=== PATIENT | male | born 1940 | race Caucasian/White ===

== ENCOUNTER → 2017-06-15 08:59 | Outpatient (CLI) | payer MEDICARE, OTHER, SELFPAY ==
--- NOTE | 2017-06-15 09:02 | RAD_ITS ---
STUDY: X-RAY - LEFT SHOULDER REASON FOR EXAM: Male, 76 years old. Shoulder pain TECHNIQUE: 4 view(s) of the shoulder. COMPARISON: None. FINDINGS: Narrowed glenohumeral articulation with medial spurring of the humeral head. Normal acromioclavicular joint. Normal acromion. Normal humeral head and visualized proximal humerus. The soft tissue structures are unremarkable. Normal visualized pulmonary apex. RAD/Shoulder min 2 Views IMPRESSION: Degenerative changes. No evidence for acute fracture or dislocation Electronically Signed: Bruno Damon MD at 23:58 EST , Service support ,
== END ==
PROVIDERS: Family Provider Internal Medicine; PCP Internal Medicine; Visit Provider Internal Medicine
DX: M25.512 Pain in left shoulder (principal)
CPT/HCPCS: 73030

== ENCOUNTER → 2017-07-07 11:59 | Outpatient (CLI) | payer MEDICARE, OTHER, SELFPAY ==
--- NOTE | 2017-07-07 12:30 | CT_ITS ---
STUDY: CT CHEST WITHOUT CONTRAST REASON FOR EXAM: Male, 76 years old. Calcium scoring examination. RADIATION DOSAGE (If Supplied By Facility): CTDIvol = ( 12.19 ) mGy, DLP = ( 438.83 ) mGycm TECHNIQUE: Transaxial imaging was performed without the administration of intravenous contrast material. Individualized dose optimization techniques were used for this CT. COMPARISON: None. FINDINGS: Mild degree of increased linear markings at the lung bases suggestive of linear scarring and/or dependent atelectasis. Calcified granuloma in the right middle lobe. There is no demonstrated pleural abnormality. There are calcifications of the coronary arteries. There are multiple small lymph nodes within the mediastinum, which are normal in size and morphology most compatible with reactive lymph hyperplasia. Normal hilar regions. Normal unenhanced pulmonary arteries. Normal aorta arch and descending thoracic aorta. There are mild degenerative changes of the thoracic spine. There is no demonstrated abnormality of the visualized upper abdomen. CT/Limited Chest CT w/CCTA IMPRESSION: Findings suggest a mild bibasilar scarring and/or atelectasis. Electronically Signed: Fan Blancas MD at 12:20 EDT Tel [phone], Service support ,
[2017-07-07 12:49] VITALS: BP 129/52; PULSE 57; RESP 14; TEMP 36.5; O2SAT 97; BMI 32.1
--- NOTE | 2017-07-07 13:19 | NURSING ---
1245 PT ASSESSMENT COMPLETE. LAST INTAKE AT 0830. LAST CAFFEINE 3 DAYS AGO. [address] FOR SCAN. 1300 PT ON MONITOR. HR 57, RHYTHM REGULAR. 1309 PT FINISHED WITH SCAN. 1330 RHYTHM STRIP PRINTED AND FAXED TO DR SHAH'S OFFICE.
--- NOTE | 2017-07-07 15:50 | CA.SCORE ---
Calcium Scoring Date of Study:: 07/07/17 Coronary Calcium Scoring: High-resolution CT imaging of the chest was performed on 07/07/2017 with particular attention paid to the coronary arteries. Images from the examination were analyzed for the presence and extent of coronary calcium. The coronary calcium quantification software was used. The patient tolerated the procedure well there were no complications. The results of the coronary calcification analysis demonstrated that the coronary calcium score was 0. Impression: Coronary calcium score of 0.
== END ==
PROVIDERS: Family Provider Internal Medicine; PCP Internal Medicine; Visit Provider Internal Medicine
DX: Z13.9 Encounter for screening, unspecified (principal)
CPT/HCPCS: 75571; 76380

== ENCOUNTER → 2017-09-23 13:53 | Outpatient (CLI) | payer MEDICARE, OTHER, SELFPAY ==
[2017-09-23 15:29] LABS: Color, Urine Yellow (Yellow); Glucose, Dipstick Normal (Normal); Ketone-Dipstick 5 mg/dl (Negative); Leukocyte Esterase-Dipstick 100 /ul (Negative); Nitrite-Dipstick Negative (Negative); Occult Blood-Urine 250 /ul (Negative); Protein-Dipstick 15 mg/dl (Negative); Specific Gravity, Urine 1.025 (1.002-1.030); Urine Bilirubin Dipstick Negative (Negative); Urine Clarity Sl. Cloudy (Clear); Urine Urobilinogen Normal (Normal)
== END ==
PROVIDERS: Family Provider Internal Medicine; PCP Internal Medicine; Visit Provider Internal Medicine
DX: R30.0 Dysuria (principal)
CPT/HCPCS: 81002; 87077; 87086; 87088; 87186

== ENCOUNTER → 2017-11-08 10:29 | Outpatient (CLI) | payer MEDICARE, OTHER, SELFPAY ==
[2017-11-08 11:01] LABS: Color, Urine Yellow (Yellow); Glucose, Dipstick Normal (Normal); Ketone-Dipstick 5 mg/dl (Negative); Leukocyte Esterase-Dipstick 25 /ul (Negative); Nitrite-Dipstick Negative (Negative); Occult Blood-Urine 150 /ul (Negative); Protein-Dipstick Negative (Negative); Specific Gravity, Urine 1.025 (1.002-1.030); Urine Bilirubin Dipstick Negative (Negative); Urine Clarity Sl. Cloudy (Clear); Urine Urobilinogen 1 mg/dl (Normal)
== END ==
PROVIDERS: Family Provider Internal Medicine; PCP Internal Medicine; Visit Provider Internal Medicine
DX: R31.9 Hematuria, unspecified (principal)
CPT/HCPCS: 81002; 87086

== ENCOUNTER → 2018-07-10 10:51 | Outpatient (CLI) | payer MEDICARE, OTHER, SELFPAY ==
--- NOTE | 2018-07-10 10:56 | US_ITS ---
STUDY: ULTRASOUND - URINARY BLADDER REASON FOR EXAM: Male, 77 years old. Renal insufficiency. Evaluate postvoid bladder residual. TECHNIQUE: Ultrasound evaluation of the urinary bladder was performed with real-time and static venegas-scale imaging. COMPARISON: None. FINDINGS: There is no right UVJ calculus. There is a visualized right ureteral jet. There is no left UVJ calculus. There is a visualized left ureteral jet. The distended volume of the urinary bladder is 102.7 ml. The empty volume of the urinary bladder is 40.2 ml. The bladder wall is within normal limits. The bladder wall measures 3 mm. The prostate gland is enlarged, measuring 6.1 x 5.8 x 6.2 cm (R114 cc). Lobulated 2.9 x 3.3 bone 0.4 cm soft tissue echogenicity along the left posterior margin of the bladder may be a component of the prostate gland indenting or invading the bladder wall versus a primary polypoid mass of the bladder wall itself. There are no demonstrated bladder calculi. US/Post Void Residual Bladder IMPRESSION: 1. Enlarged prostate gland. 2. Lobulated soft tissue density along the left posterior bladder wall related to the prostate gland or primary mural lesion of the urinary bladder itself. Recommend visualization with cystoscopy may be useful. 3. Mild to moderate postvoid bladder residual. Electronically Signed: Carl Tapia MD at 16:27 EDT , Service support ,
== END ==
PROVIDERS: Family Provider Internal Medicine; PCP Internal Medicine; Referring Provider Internal Medicine; Visit Provider Internal Medicine
DX: N28.9 Disorder of kidney and ureter, unspecified (principal); R33.9 Retention of urine, unspecified
CPT/HCPCS: 51798

== ENCOUNTER → 2018-07-19 10:54 | Outpatient (CLI) | payer MEDICARE, OTHER, SELFPAY ==
[2017-07-07 12:49] VITALS: BMI 32.1
[2018-07-19 12:41] LABS: Absolute Neutrophil Count 4.5 X10^3/uL (2.0-7.7); Basophil# 0.02 X10^3/uL; Basophil% 0.2 % (0-1); Eosinophil# 0.23 X10^3/uL; Eosinophils% 2.9 % (0-5); Hematocrit 42.3 % (40-54); Hemoglobin 13.7 g/dl (13.0-16.5); Mean Corp Hgb Conc 32.4 g/gl (32-36); Mean Corpuscular Hgb 29.5 pg (27.0-32.0); Mean Platelet Vol. 9.3 fl (6.2-12.0); Monocyte# 0.79 X10^3/uL; Monocyte% 9.8 % (0-10); Neutrophil % 55.9 % (47-70); Platelet Count 276 K/mm3 (150-450); RBC Distribution Width CV 13.3 % (11.6-14.6); Red Blood Count 4.65 M/mm3 (4.6-6.2); White Blood Count 8.1 K/mm3 (4.4-11.0)
[2018-07-19 12:43] LABS: POSITIVE COUNT NO; POSITIVE DIFFERENTIAL NO; POSITIVE MORPHOLOGY NO
[2018-07-19 13:23] LABS: Albumin, Serum 3.4 g/dL (3.2-5.0); BUN 20 mg/dL (7-18); BUN/Creat Ratio 15.2 RATIO (10-20); Calcium,Total 8.7 mg/dL (8.5-10.1); Chloride 108 mmol/L (98-107); Creatinine, Serum 1.32 mg/dL (0.70-1.30); EST Glomerular Filtration Rate 56 mL/min (>60); Est Glom Filt Rate - Afr Amer 68 mL/min (>60); Free T3 2.5 pg/mL (2.18-3.98); Glucose 87 mg/dL (74-106); Phosphorus 2.8 mg/dL (2.5-4.9); Potassium 3.9 mmol/L (3.5-5.1); Sodium Level 141 mmol/L (136-145); T4 Free Direct 0.86 ng/dL (0.76-1.46); Thyroid Stim Hormone (TSH) 2.46 uIU/mL (0.358-3.74)
[2018-07-20 15:03] LABS: Thyroid Peroxidase AB 20 IU/mL (0-34)
== END ==
PROVIDERS: Family Provider Internal Medicine; PCP Internal Medicine; Referring Provider Internal Medicine; Visit Provider Internal Medicine
DX: N28.9 Disorder of kidney and ureter, unspecified (principal); R94.6 Abnormal results of thyroid function studies
CPT/HCPCS: 36415; 80069; 84439; 84443; 84481; 85025; 86376

== ENCOUNTER → 2018-07-20 16:48 | Outpatient (CLI) | payer MEDICARE, OTHER, SELFPAY ==
[2017-07-07 12:49] VITALS: BMI 32.1
--- NOTE | 2018-07-20 | CYSPIN_PTH ---
PATIENT: SHARRI LAMB LOC: [facility] U#:[id number] AGE/SX: 84/M ROOM: RE07/20/[address]: Dr. Eriberto Tanner MD : 1940 BED: DIS: SPEC #: [id number] RECD: 07/20/18 09:03 STATUS: JUAN PABLO MOISÉS #: [id number] ZORA: 07/20/18 00:[address]: Eriberto Tanner DEPT: CYTOLOGY RECD BY: Bernard Ortez ENTERED: 07/21/18 09:04 SP TYPE: CYSPIN FL OTHR DR: Dr. Farida Ellis MD Tissues: Urine Procedures: Pap Stain (control) Special Stain Group II Cytospin Fluid HEADER OPERATION: Not noted PRE-OP DIAGNOSIS: Hematuria TISSUE SUBMITTED: Urine for cytology DIAGNOSIS CYTOLOGY Urine for cytology (cytospin): Negative for malignant cells. Crystalline debris present. AM:debbie 4/1/19 CYTOLOGY STUDY Slides are reviewed. CYTOLOGY GROSS Received is 40 ml of yellow cloudy fluid labeled with the patient's name and and designated per the requisition as urine. Submitted for cytology preparation. 07/21/18 TC:5 CPT: 53211
[2018-07-20 17:08] LABS: Cytology, Body Fluid / CSF SEE PATHOLOGY REPORT
== END ==
PROVIDERS: Family Provider Internal Medicine; PCP Internal Medicine; Referring Provider Urology; Visit Provider Urology
DX: R31.9 Hematuria, unspecified (principal)
CPT/HCPCS: 88108; 88313

== ENCOUNTER 2019-12-07 07:14 | Day surgery (SDC) | payer MEDICARE, OTHER, SELFPAY ==
[2019-11-27 14:18] VITALS: BMI 32.1
[2019-12-07 07:28] VITALS: BP 146/66; PULSE 51; RESP 16; TEMP 36; O2SAT 98; BMI 29.9
--- NOTE | 2019-12-07 07:41 | HP.PCM_ITS ---
Problem List (1) Fecal incontinence Status: Acute Qualifiers: History and Physical Date of Admission: 12/07/19 Intake Visit Reasons: Hemorrhoids Chief Complaint: hemorrhoids Formwork Carpenter Required: No Is patient in pain?: Yes (hemorrhoids) Allergies Sulfa (Sulfonamide Antibiotics) Allergy (Verified 11/27/19 14:18) Hives Medications NK 07/07/17 [History Confirmed 11/27/19] FOR[facility] Medical History Hemorrhoids (Acute) Kidney stones (Acute) Surgical History S/P appendectomy (Acute) Status post laparoscopic cholecystectomy (Acute) Social History (Updated 11/27/19 @ 17:[address] Joe Garcia MD) Smoking Status: Never smoker alcohol intake: never HPI HPI HPI: SHARRI LAMB, is a 79 M who presents to the office today for surgical consultation regarding suspected symptomatic hemorrhoids. The patient was referred by his primary care physician Dr. Lazaro Covarrubias and a written copy my surgical consult recommendations will be returned to him The patient states that over the past month he has had significant pruritus and discomfort from his hemorrhoids. He also states that the stools become more pellet ties and smaller in diameter. He claims that occasionally he will notice some blood. Claims that it is uncomfortable all of the time. His most recent colonoscopy is quite remote dated September 03, 2002. Scattered diverticulosis was identified at that time. The patient denies any acute chest problems. No shortness of breath no cough. He denies any weight loss. He denies any abdominal pain. There is been no nausea or vomiting. He has tried Preparation H suppositories and Tucks pads without relief. HPI HPI HPI: SHARRI LAMB, is a 79 M who presents to the office today for ROS General General: No weight change, appetite, fatigue, colon cancer, breast cancer or weakness HEENT HEENT: No difficulty swallowing, eye injury, eye surgery, swollen glands or hoarseness Endo Endocrine: No thyroid disease, diabetes mellitus, thyroid cancer, Hair loss, heat intolerance or cold intolerance Skin Skin: No rash or changing moles Breast Breast: No left breast lump, right breast lump, nipple discharge, breast pain, abnormal mammogram, abnormal US or breast enlargement Musc Musculoskeletal: Yes arthritis; no back problems, rheumatoid arthritis, gout or joint pain Cardio Cardiovascular: No murmur, pacemaker, heart disease, atrial fibrillation, high blood pressure, heart attack, heart stent, palpitations, shortness of breat with exertion or chest pain Psych Psychiatric: No depression, anxiety or hearing voices Resp Respiratory: No shortness of breath, No sleep apnea, No cough, No COPD, No asthm a, No emphysema, No wheezing Gastro Gastrointestinal: No abdominal pain, No nausea or vomiting, Yes diarrhea, No constipation, Yes blood in stool, No acid reflux, No hemorrhoids, No ulcers, No gallbladder problem, No black,tarry stools Jamil Hematologic: No blood thinners, No blood disorders, No bleeding, No anemia, No blood clots Neuro Neurologic: No system reviewed and no additional complaints, except as docu, No as per HPI, No abnormal walking, No abnormal hearing, No abnormal movements, No abnormal speech, No behavioral changes, No burning sensations, No confusion, No seizure-like activity, No unsteadiness, No dizziness, No localized weakness, No frequent falls, No headache(s), No lack of coordination, No loss of vision, No memory loss, No numbness, No other visual disturbances, No radiating pain, No restless legs, No sensory deficit, No fainting, No tingling, No tremor(s), No weakness, No other Exam Const General: cooperative Nutritional Appearance: average body habitus Orientation: alert, awake Other: Patient is notably hard of hearing HENCT Head: normal to inspection Eyes General: appearance normal, both eyes and all related structures Chest Breast Palpation: No nipple discharge Resp Effort & Inspection: normal respiratory effort Auscultation: clear to auscultation bilaterally Cardio Rate: regular rate Rhythm: regular rhythm Heart Sounds: no murmurs GI Palpation: soft, no hepatosplenomegaly Auscultation: normal bowel sounds Other: Rectal exam demonstrates that he has liquidy stool staining the perianal area for several centimeters. There is superficial excoriation of the skin around the anus. I do not demonstrate any protruding external hemorrhoids. On digital examination he has some very mild internal hemorrhoids. The prostate is 2+ and smooth. I do not detect any mass lesions. Anal tone seems diminished. [facility] Cervical Spine: normal cervical lordosis Neuro Cognition: normal cognition Extrem General: no calf tenderness Psych Affect: normal affect Assessment & Plan Problems 1. Hemorrhoids, unspecified hemorrhoid type K64.9 2. Fecal smearing R15.1 3. Change in bowel habit R19.4 Plan Change of bowel habit with decreased caliber stool. Fecal incontinence which I believe the patient is mistaken for hemorrhoid disease. At least externally there are no gross hemorrhoids and on digital exam the degree of internal hemor rhoidal disease seems less remarkable. We have prescribed for him calmoseptine ointment and Desitin ointment to assist with the fecal incontinence. I am recommending to him a colonoscopy with a very careful inspection of the rectosigmoid area for potential source of stool caliber change. I have discussed with him the technique, benefit, risk and alternatives. He is aware of the Covid-19 pandemic. He is aware that the [facility] currently is reporting a low local incidence. We will schedule and proceed at his discretion. I very much appreciate the kind opportunity of assisting with his surgical care. Unfortunately he is additionally aware that I will not have a surgical resolution if the only diagnosis remains fecal incontinence. Cc: Dr. Lazaro Garcia M.D., F.A.C.S. Orders Orders: Colonoscopy Today Coding Level of Care Code 46379 Diagnoses Hemorrhoids, unspecified hemorrhoid type K64.9 ??Hemorrhoid type: unspecified Fecal smearing R15.1 ??Fecal incontinence type: fecal smearing Change in bowel habit R19.4 I have re-examined the patient. There are no clinical changes since date of exam. Procedure Criteria Procedure Type: Elective COVID Risk Discussion: The surgeon/proceduralist and patient have discussed in detail the risk of exposure to and/or potential harm posed by the COVID-19 virus with having a surgery/procedure at this time versus the risk of delaying the surgery/procedure. It is not possible to know either the risk of delaying the surgery or procedure or chance of getting an infection with perfect accuracy, but a joint decision was made between the patient and the surgeon/proceduralist to proceed at this time with the scheduled surgery/procedure as indicated on the consent form.
[2019-12-07] MEDS: Lactated Ringers 1,000 ML 100 ML IV (07:44)
--- NOTE | 2019-12-07 08:15 | COLBX_PTH ---
PATIENT: SHARRI LAMB LOC: EN U#:[id number] AGE/SX: 79/M ROOM: RE12/07/[address]: Dr. Joe Garcia MD : 1940 BED: DIS: 12/07/2019 SPEC #: [id number] RECD: 12/07/19 09:36 STATUS: JUAN PABLO MOISÉS #: [id number] ZORA: 12/07/19 08:[address]: Joe Garcia DEPT: SURGICAL PATHOLOGY RECD BY: Prasanth Gross ENTERED: 12/07/19 10:09 SP TYPE: COLON BX OTHR DR: MD Lazaro Kumar Tissues: Transverse colon Procedures: Surgery Specimen Level IV HEADER OPERATION: Colonoscopy (MAC) PRE-OP DIAGNOSIS: Fecal smearing, change in bowel habits, hemorrhoids TISSUE SUBMITTED: Biopsy of proximal transverse polyp MICROSCOPIC DIAGNOSIS Proximal transverse colon polyp, biopsy: Fragments of tubular adenoma. SJ:debbie 12/10/19 MICROSCOPIC DESCRIPTION Slides are reviewed. GROSS DESCRIPTION Received in fixative is one container labeled with the patient's name and designated biopsy of proximal transverse polyp. The specimen consists of multiple irregular fragments of light hameed soft tissue that in aggregate measure 0.6 x 0.3 x 0.1 cm. The specimen is totally submitted in one cassette. / KATHERINE:debbie 12/07/19 TC:1 CPT: 82106
[2019-12-07 08:45] VITALS: BP 146/66; PULSE 72; RESP 16; TEMP 36.7; O2SAT 98
--- NOTE | 2019-12-07 08:46 | OP.CCLET_ITS ---
12/07/2019 Lazaro Covarrubias Re : Colonoscopy procedure for Abraham Sunshine Dear Satish This procedure was performed on Saturday, December 07, 2019. My impressions and recommendations are as follows: Impressions : - Preparation of the colon was fair. - Lax anal tone found on digital rectal exam. Internal and external hemorrhoids - Diverticulosis in the sigmoid colon and in the descending colon. - One 5 mm polyp in the proximal transverse colon, removed with a cold biopsy forceps. Resected and retrieved. Recommendations : - Await pathology results. - Repeat colonoscopy in 5 years for surveillance based on pathology results. - Telephone my office for pathology results in 1 week. - Continue present medications. My findings are described in the full procedure note, which is enclosed. If I can be of further assistance, please feel free to contact me at Doctor phone number(s): Work: . Sincerely, Joe Garcia MD 12/07/2019 8:45:59 AM This report has been signed electronically.
--- NOTE | 2019-12-07 08:46 | OP.COLON_ITS ---
Patient Name: Abraham Sunshine Procedure Date: 12/07/2019 8:12 AM Date of : 1940 Age: 79 Procedure: Colonoscopy Indications: Change in bowel habits Providers: Joe Garcia MD Referring MD: Lazaro Covarrubias Medicines: See the Anesthesia note for documentation of the administered medications Patient Profile: Last Colonoscopy: date unknown. Complications: No immediate complications. Procedure: Pre-Anesthesia Assessment: - Prior to the procedure, a History and Physical was performed, and patient medications and allergies were reviewed. The patient's tolerance of previous anesthesia was also reviewed. The risks and benefits of the procedure and the sedation options and risks were discussed with the patient. All questions were answered, and informed consent was obtained. Prior Anticoagulants: The patient has taken no previous anticoagulant or antiplatelet agents. ASA Grade Assessment: II - A patient with mild systemic disease. After reviewing the risks and benefits, the patient was deemed in satisfactory condition to undergo the procedure. After I obtained informed consent, the scope was passed under direct vision. Throughout the procedure, the patient's blood pressure, pulse, and oxygen saturations were monitored continuously. The colonoscope was introduced through the anus and advanced to the cecum, identified by appendiceal orifice and ileocecal valve. The colonoscopy was performed without difficulty. The patient tolerated the procedure well. The quality of the bowel preparation was fair. The ileocecal valve and the appendiceal orifice were photographed. Scope In: 8:22:20 AM Scope Withdrawal Time 0 hours 8 minutes 43 seconds Scope Out: 8:39:06 AM Total Procedure Duration Time 0 hours 16 minutes 46 seconds Findings: The digital rectal exam findings include lax anal tone. Pertinent negatives include normal prostate (size, shape, and consistency). Multiple diverticula were found in the sigmoid colon and descending colon. A 5 mm polyp was found in the proximal transverse colon. The polyp was sessile. The polyp was removed with a cold biopsy forceps. Resection and retrieval were complete. Impression: - Preparation of the colon was fair. - Lax anal tone found on digital rectal exam. Internal and external hemorrhoids - Diverticulosis in the sigmoid colon and in the descending colon. - One 5 mm polyp in the proximal transverse colon, removed with a cold biopsy forceps. Resected and retrieved. Recommendation: - Await pathology results. - Repeat colonoscopy in 5 years for surveillance based on pathology results. - Telephone my office for pathology results in 1 week. - Continue present medications. Procedure Code(s): --- Professional --- 95572, Colonoscopy, flexible; with biopsy, single or multiple Diagnosis Code(s): --- Professional --- D12.3, Benign neoplasm of transverse colon (hepatic flexure or splenic flexure) R19.4, Change in bowel habit K57.30, Diverticulosis of large intestine without perforation or abscess without bleeding CPT copyright 2017 [employer]. All rights reserved. The codes documented in this report are preliminary and upon severity of illness coordinator review may be revised to meet current compliance requirements. Joe Garcia MD 12/07/2019 8:45:59 AM This report has been signed electronically. Number of Addenda: 0 Note Initiated On: 12/07/2019 8:12 AM
[2019-12-07 08:50] VITALS: BP 137/95; BP 146/66; PULSE 71; RESP 16; O2SAT 99
[2019-12-07 08:55] VITALS: BP 146/66; BP 149/83; PULSE 64; RESP 16; O2SAT 97
[2019-12-07 09:00] VITALS: BP 146/66; BP 151/85; PULSE 66; RESP 16; TEMP 36.7; O2SAT 97
[2019-12-07 09:45] VITALS: BP 146/66
== END 2019-12-07 09:30 | disposition home or self-care (01) ==
LOC: EN 07:15 → AC 07:16
PROVIDERS: Anesthesiology; Referring Provider Family Medicine; Visit Provider Surgery
PROC: 0DJD8ZZ Inspection of Lower Intestinal Tract, Via Natural or Artificial Opening Endoscopic (ICD-10-PCS; CPT 45378; principal; 2019-12-07 08:10)
DX: D12.3 Benign neoplasm of transverse colon (principal); K57.30 Diverticulosis of large intestine without perforation or abscess without bleeding; Z11.59 Encounter for screening for other viral diseases; R15.9 Full incontinence of feces; R15.1 Fecal smearing; K64.4 Residual hemorrhoidal skin tags; K64.8 Other hemorrhoids; I10 Essential (primary) hypertension; M19.90 Unspecified osteoarthritis, unspecified site; H91.90 Unspecified hearing loss, unspecified ear
CPT/HCPCS: 45380; 87635; 88305; 94799; J7120; J2405; U0003

== ENCOUNTER → 2020-01-28 10:27 | Outpatient (CLI) | payer MEDICARE, SELFPAY ==
[2020-01-28 11:13] LABS: Absolute Lymphocyte Count 2.77 X10^3/uL (0.83-4.51); Absolute Neutrophil Count 5.6 X10^3/uL (2.0-7.7); Basophil# 0.04 X10^3/uL; Basophil% 0.4 % (0-1); Eosinophil# 0.18 X10^3/uL; Eosinophils% 1.9 % (0-5); Lymphocyte # 2.77 X10^3/ul (4.0); Lymphocyte % 29.5 % (19-41); Mean Corp Hgb Conc 32.6 g/dL (32-36); Mean Corpuscular Hgb 30.1 pg (27.0-32.0); Mean Corpuscular Volume 92.5 fL (80-94); Mean Platelet Vol. 8.8 fl (6.2-12.0); Monocyte# 0.75 X10^3/uL; NRBC Flagged by Analyzer 0 % (0-5); Neutrophil % 59.8 % (47-70); Platelet Count 270 K/mm3 (150-450); RBC Distribution Width SD 43.8 fl (35.1-43.9); Red Blood Count 4.65 M/mm3 (4.6-6.2); White Blood Count 9.4 K/mm3 (4.4-11.0)
[2020-01-28 11:23] LABS: Color, Urine Yellow (Yellow); Glucose, Dipstick Normal (Normal); Ketone-Dipstick Negative (Negative); Leukocyte Esterase-Dipstick 25 /ul (Negative); Nitrite-Dipstick Negative (Negative); Occult Blood-Urine 150 /ul (Negative); Protein-Dipstick 15 mg/dl (Negative); Specific Gravity, Urine 1.025 (1.002-1.030); Urine Bilirubin Dipstick Negative (Negative); Urine Clarity Clear (Clear); Urine Urobilinogen Normal (Normal)
[2020-01-28 12:19] LABS: ALB/GLOB Ratio 1.1 RATIO (0.9-2.4); AST(SGOT) 16 U/L (15-37); Alanine Aminotransfer ALT/SGPT 20 U/L (16-61); Albumin, Serum 3.6 g/dL (3.2-5.0); Alkaline Phosphatase 71 U/L (45-117); Anion Gap 1 (5-15); BUN 20 mg/dL (7-18); BUN/Creat Ratio 14.6 RATIO (10-20); Calcium,Total 8.5 mg/dL (8.5-10.1); Chloride 109 mmol/L (98-107); Cholesterol 118 mg/dL (200); Creatinine, Serum 1.37 mg/dL (0.70-1.30); EST Glomerular Filtration Rate 53 mL/min (>60); Est Glom Filt Rate - Afr Amer 64 mL/min (>60); Globulin 3.2 g/dL (2.2-4.2); Glucose 92 mg/dL (74-106); High Density Lipoprotein 46 mg/dL; PSA,Total - Annual Screen 1.67 ng/mL (0.00-4.00); Potassium 4.3 mmol/L (3.5-5.1); Protein, Total 6.8 g/dL (6.4-8.2); Sodium Level 140 mmol/L (136-145); Triglycerides 58 mg/dL; Very Low Density Lipoprotein 12 mg/dL (5-40)
== END ==
PROVIDERS: Referring Provider Family Medicine; Visit Provider Family Medicine
DX: Z00.00 Encounter for general adult medical examination without abnormal findings (principal); Z12.5 Encounter for screening for malignant neoplasm of prostate
CPT/HCPCS: 36415; 80053; 80061; 81002; 84153; 85025; G0103

== ENCOUNTER 2021-03-13 14:51 | Emergency (ER) | payer MEDICARE, OTHER, SELFPAY ==
[2021-03-13] VITALS (7 sets, daily range): BP systolic 127–147; BP diastolic 69–98; PULSE 78–87; RESP 16–24; TEMP 37.3–37.4; O2SAT 91–95; BMI 23.7
--- NOTE | 2021-03-13 15:56 | RAD_ITS ---
STUDY: X-RAY CHEST REASON FOR EXAM: Male, 80 years old. Shortness of breath. TECHNIQUE: Single AP portable view of the chest. COMPARISON: Acute abdomen with chest, 11/18/2016. FINDINGS: The lungs are clear and expanded. There is no demonstrated pleural abnormality. Normal size heart. Normal mediastinum and ruby. Normal visualized pulmonary arteries. Normal visualized aortic arch and descending thoracic aorta. There are diffuse degenerative changes of the visualized thoracic spine. There is degenerative osteoarthritis of the bilateral shoulders. There is no demonstrated abnormality of the visualized soft tissue structures of the upper abdomen. RAD/Chest 1 View (Portable) IMPRESSION: No acute cardiopulmonary disease or major interval change. Electronically Signed: Loyd Stevens DO at 16:10 EST Tel [phone], Service support ,
[2021-03-13 16:28] LABS: Absolute Lymphocyte Count 1.45 X10^3/uL (0.83-4.51); Absolute Neutrophil Count 2.8 X10^3/uL (2.0-7.7); Basophil# 0.01 X10^3/uL; Basophil% 0.2 % (0-1); Eosinophil# 0.01 X10^3/uL; Eosinophils% 0.2 % (0-5); Hematocrit 45.9 % (40-54); Hemoglobin 15.3 g/dL (13.0-16.5); Lymphocyte # 1.45 X10^3/ul (0.83-4.51); Mean Corp Hgb Conc 33.3 g/dL (32-36); Mean Corpuscular Hgb 28.8 pg (27.0-32.0); Mean Corpuscular Volume 86.3 fL (80-94); Mean Platelet Vol. 8.9 fl (6.2-12.0); Monocyte% 8.6 % (0-10); NRBC Flagged by Analyzer 0 % (0-5); Neutrophil # 2.78 X10^3/uL (2.7-7.7); Neutrophil % 59.6 % (47-70); Platelet Count 162 K/mm3 (150-450); RBC Distribution Width CV 13.2 % (11.6-14.6); RBC Distribution Width SD 41.9 fl (35.1-43.9); Red Blood Count 5.32 M/mm3 (4.6-6.2); White Blood Count 4.7 K/mm3 (4.4-11.0)
[2021-03-13 16:39] LABS: Anion Gap 3 (5-15); BUN 15 mg/dL (7-18); BUN/Creat Ratio 12.5 RATIO (10-20); Calcium,Total 8.1 mg/dL (8.5-10.1); Chloride 104 mmol/L (98-107); EST Glomerular Filtration Rate 62 mL/min (>60); Est Glom Filt Rate - Afr Amer 75 mL/min (>60); Estimated Creatinine Clearance 55.49 ml/min; Glucose 109 mg/dL (74-106); Potassium 3.2 mmol/L (3.5-5.1); Sodium Level 135 mmol/L (136-145)
--- NOTE | 2021-03-13 18:17 | EDS_ITS ---
HPI History of Present Illness Chief Complaint: Shortness of Breath Detail of Chief Complaint: COVID-19 infection with altered mental status Informant: patient and spouse/S.O. Onset/Context/Timing Onset: Days (Onset of illness 7 days ago) Context: Gradual Onset Timing: Continuous Quality: Patient now has decreased level consciousness and incontinence Location: Patient's Covid test was done on Tuesday at the [facility], February 23 Current Severity: Moderate Maximum Severity: Severe Worsened by: Suspect due to Covid Relieved by: Nothing Associated Symptoms Associated Symptoms: Decreased level consciousness, incontinence, decreased activity and p.o. 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 He was diagnosed with C ovid. His Covid test was performed on Tuesday, March 11. His symptoms started 1 week ago, March 06. History is limited because he is deaf. He is able to read lips. He is disoriented to time. He denies headache. He denies light sensitivity. He denies neck pain or neck stiffness. He does have a slight cough. His pulse ox was as low was 88% per significant other. Once he was awake and his pulse ox went to 93%. She states he has been incontinent of urine for the past 2 days. Prior similar symptoms: Yes Recent Illness/Hospitalization: Yes PFSH PFS Medical History Change in bowel habit Fatigue Fecal incontinence Hemorrhoids Hemorrhoids Kidney stones Shoulder pain Home Medications NK 03/10/21 [History Last Taken Unknown] Allergy/AdvReac Type Severity Reaction Status Date / Time Sulfa (Sulfonamide Allergy Hives Verified 03/13/21 14:54 Antibiotics) being put under Allergy unknown Uncoded 03/13/21 14:54 Surgical History S/P appendectomy Status post laparoscopic cholecystectomy Social History (Updated 03/13/21 @ 18:[address] Hugo Mancia MD) household members: spouse Smoking Status: Never smoker Smokeless tobacco user: chewing tobacco alcohol intake: never substance use type: does not use ROS ROS ED Review of Systems ROS Unobtainable: due to encephalopathy, due to mental status and other Details: History provided by person with him and who has been caring for him. Constitutional Constitutional ED: Reports fever(s) Cardiovascular Cardiovascular: Reports palpitations Respiratory/Chest Respiratory/Chest: Reports cough and dyspnea Gastrointestinal Gastrointestinal: Reports diarrhea Neurologic Neurologic: Reports weakness; Denies headache(s) Endocrine Endocrinology: Denies polydipsia, polyphagia or polyuria Allergic/Immunologic Allergic/Immunologic ED: Denies urticaria EXAM Physical Exam Const Vital Signs: 03/13/21 14:52 03/13/21 16:36 03/13/21 16:37 Temperature 99.2 F H Temperature Source Temporal Pulse Rate 80 78 Respiratory Rate 16 24 H Respiratory Effort Respiratory Depth Respiratory Pattern Blood Pressure 147/69 H 127/98 H Blood Pressure Mean 95 107 Pulse Ox 91 92 91 Oxygen Delivery Method Room Air Room Air Room Air 03/13/21 16:47 03/13/21 18:03 Temperature Temperature Source Pulse Rate 80 Respiratory Rate 18 Respiratory Effort Normal Non-Labored Respiratory Depth Normal Respiratory Pattern Normal Blood Pressure Blood Pressure Mean Pulse Ox 95 Oxygen Delivery Method Room Air Room Air Positive well nourished, well developed and unkempt General Appearance ED: unkempt, well developed and NAD; Negative for cyanotic or diaphoretic HEENT Reports TM's clear and dry mucous membranes HEENT Narrative: Head atraumatic normocephalic. Tympanic Membrane ED: Yes TM's clear Mouth ED: Yes dry mucous membranes Mouth: dry mucous membranes Eyes EOMs intact bilaterally General Eye ED: Negative for pale conjunctiva Neck no lymphadenopathy, supple and no JVD Resp normal respiratory effort and No clear to auscultation bilaterally Auscultation: rales bilateral lower Cardio regular rate, regular rhythm, S1 normal heart sound and S2 normal heart sound GI normal to inspection, nondistended, normoactive bowel sounds, non-tender and non-distended Palpation: soft Back/Spine no CVA tenderness Cervical Spine: Negative for cervical spine tenderness Thoracic Spine / Upper Back: Negative for thoracic spinal tenderness Extremity normal to inspection General Extremety ED: Yes edema; Negative for tenderness General Extremity: edema Neuro No oriented x3 and CN's II-XII intact bilaterally Sensorium / Orientation: Negative for alert Motor Exam: strength 5/5 throughout and general weakness Psych Negative for mental status grossly normal Appearance: unkempt Skin no rashes or lesions noted and no wounds MDM MDM MDM Narrative Medical decision making narrative: Patient diagnosed with Covid. Suspect he is dehydrated. Also concern for encephalopathy due to Covid. He has no meningeal findings. Since he has altered mental status with disorientation incontinence and not able to care for himself he will need to be admitted to the hospital. Will obtain blood work to rule out anemia, leukocytosis versus neutropenia, electrolyte abnormality renal dysfunction etc. Patient was reassessed at 1833. Patient now responds to me when I asked questions. His answers are appropriate. He is no longer disoriented. He looks much better after fluids. His [id number] informed him that he needs to drink more fluids. Since he is no longer encephalopathic and improved with gentle hydration will discharge to home. Lab Data Labs: Laboratory Results - last 24 hr 03/13/21 03/13/21 16:15 16:15 WBC 4.7 RBC 5.32 Hgb 15.3 Hct 45.9 MCV 86.3 MCH 28.8 MCHC 33.3 RDW Std Deviation 41.9 RDW Coeff of Viviane 13.2 Plt Count 162 MPV 8.9 Immature Gran % (Auto) 0.400 Neut % (Auto) 59.6 Lymph % (Auto) 31.0 Lawrence % (Auto) 8.6 Eos % (Auto) 0.2 Baso % (Auto) 0.2 Absolute Neuts (auto) 2.8 Absolute Lymphs (auto) 1.45 Nucleated RBC % 0 Sodium 135 L Potassium 3.2 L Chloride 104 Carbon Dioxide 28.0 Anion Gap 3 L BUN 15 Creatinine 1.20 Estim Creat Clear Calc 55.49 Est GFR (MDRD) Af Amer 75 Est GFR (MDRD) Non-Af 62 BUN/Creatinine Ratio 12.5 Glucose 109 H Calcium 8.1 L Radiography Chest X-Ray - ED: 1 View and Read by ED Physician (I believe there is increased increased markings right lower lobe. These are fine interstitial changes. Clinically has Covid pneumonia.) Diagnostic Testing: Clinical Impression(s) from Imaging Studies Chest X-Ray 03/13/21 15:56 IMPRESSION: No acute cardiopulmonary disease or major interval change. Electronically Signed: Loyd Stevens DO at 16:10 EST Tel [phone], Service support , Discharge Plan Triage Chief Complaint: Shortness of Breath ED Provider: Hugo Mancia Dx/Rx/DC Orders Clinical Impression: COVID-19 virus infection, Encephalopathy due to 2019 novel coronavirus Instructions: Coronavirus Disease 2019 (COVID-19): Caring for Yourself or Others Prescriptions: No Action NK RF: 0 Primary Care Provider: Lazaro Covarrubias Referrals: Lazaro Covarrubias [Primary Care Provider] - Activity Restrictions/Additional Instructions: 1. You need to drink more fluids 2. If his pulse ox is less than 88% return to the emergency department 3. If he becomes disoriented again and is not eating or drinking return to the emergency department Disposition Disposition: Home, Self Care
== END 2021-03-13 18:54 | disposition home or self-care (01) ==
PROVIDERS: Emergency Provider Emergency Medicine
DX: U07.1 COVID-19 (principal); G93.49 Other encephalopathy; R41.82 Altered mental status, unspecified; R32 Unspecified urinary incontinence; H91.90 Unspecified hearing loss, unspecified ear; F17.220 Nicotine dependence, chewing tobacco, uncomplicated
CPT/HCPCS: 71045; 80048; 85025; 94760; 96360; 99283; A4216